=== PATIENT | female | born 1995 | race African-American/Black ===

== ENCOUNTER 2017-08-04 22:53 | Emergency (ER) | payer OTHER ==
[2017-08-04 22:57] VITALS: BP 130/80; BMI 24.9
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
[2017-08-05] MEDS ORDERED: KETOROLAC TROMETHAMINE 30 MG/1 ML VIAL IM ONE (01:28)
[2017-08-05] MEDS ORDERED: KETOROLAC TROMETHAMINE 30 MG/1 ML VIAL ONE (01:32)
[2017-08-05 03:18] VITALS: PULSE 80; TEMP 98.2
== END 2017-08-05 03:18 | disposition home or self-care (01) ==
LOC: JER 22:53
PROC: 3E0233Z Introduction of Anti-inflammatory into Muscle, Percutaneous Approach (ICD-10-PCS; principal; 2017-08-04)
DX: M54.5 Low back pain (principal); G89.29 Other chronic pain; V89.2XXS Person injured in unspecified motor-vehicle accident, traffic, sequela
CPT/HCPCS: 84703; 99281-25

== ENCOUNTER 2017-09-28 22:44 | Emergency (ER) | payer OTHER ==
[2017-09-28 23:03] VITALS: BP 128/64; PULSE 78; TEMP 98.9; BMI 27.1
[2017-09-28] MEDS ORDERED: KETOROLAC TROMETHAMINE 60 MG/2 ML VIAL IM ONE (23:25)
[2017-09-28] MEDS ORDERED: KETOROLAC TROMETHAMINE 30 MG/1 ML VIAL ONE (23:31)
[2017-09-28 23:42] LABS: URINE APPEARANCE SLCLOUDY; URINE BILIRUBIN NEGATIVE (<2.0 mg/dL); URINE COLOR YELLOW; URINE GLUCOSE (UA) NEGATIVE (NEGATIVE); URINE KETONE NEGATIVE (NEGATIVE); URINE LEUK ESTERASE TRACE (NEGATIVE); URINE NITRITE NEGATIVE (NEGATIVE); URINE PROTEIN NEGATIVE (NEGATIVE); URINE UROBILINOGEN NEGATIVE mg/dL (0.2-1.0)
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
[2017-09-28 23:57] LABS: EPI CELLS FEW /HPF (FEW); URINE MUCUS RARE
== END 2017-09-29 00:03 | disposition home or self-care (01) ==
LOC: JER 22:44
PROC: 3E0233Z Introduction of Anti-inflammatory into Muscle, Percutaneous Approach (ICD-10-PCS; principal; 2017-09-28)
DX: M54.5 Low back pain (principal); M62.830 Muscle spasm of back; G89.29 Other chronic pain
CPT/HCPCS: 81003; 81015; 84703; 99281-25

== ENCOUNTER 2017-12-19 22:20 | Emergency (ER) | payer OTHER ==
[2017-12-19 22:26] VITALS: BP 119/77; PULSE 82; TEMP 97.7; BMI 25.6
--- NOTE | 2017-12-20 00:13 | PDOC ---
History of Present Illness - General History Source: Patient Exam Limitations: No Limitations - History of Present Illness Initial Comments: 12/20/17 00:23 The patient is a 22 year old female, with a significant past medical history of asthma, who presents to the emergency department with diffuse back pain and increased sensitivity to her back for about 9 months which has increased over the past few weeks. She states she had an MRI of her cervical, thoracic, and lumbar spine which was normal. She reports she has gone to physical therapy, chiropractors, taken Tylenol, Motrin and muscle relaxants with no relief of pain. She states she can not elevate her arms above shoulder level secondary to pain. She states she can not lift her legs or stand/sit for long periods of time secondary to intense pain. She states even the lightest touch exacerbates her pain. She also reports that lying down exacerbated her back pain and makes her SOB. 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 She reports occasional radiation of pain down her upper and lower extremities. She states she is becoming depressed about her pain and inability to work. She states this pain is also interfering with her relationship with her boyfriend because touching her back hurts. The patient denies chest pain, headache and dizziness. The patient denies fever , chills, nausea, vomit, diarrhea and constipation. The patient denies dysuria, frequency, urgency and hematuria. Surgical Hx: ablation for endometriosis. PCP - Dr. Braulio Tomlinson <Jenny Wellington - Last Filed: 12/20/17 00:23> <Fela Gagnon - Last Filed: 12/20/17 00:27> - General Chief Complaint: Back Pain Stated Complaint: BACK PAIN Time Seen by Provider: 12/19/17 23:58 Past History <Jenny Wellington - Last Filed: 12/20/17 00:23> - Past Medical History Asthma: Yes COPD: No - Immunization History Immunization Up to Date: Yes - Suicide/Smoking/Psychosocial Hx Smoking Status: No Smoking History: Never smoked Have you smoked in the past 12 months: No Number of Cigarettes Smoked Daily: 0 Information on smoking cessation initiated: No Hx Alcohol Use: No Drug/Substance Use Hx: Yes Substance Use Type: Marijuana <Fela Gagnon - Last Filed: 12/20/17 00:27> - Past Medical History Allergies/Adverse Reactions: Allergies Allergy/AdvReac Type Severity Reaction Status Date / Time azithromycin [From Zithromax] Allergy Unknown Verified 12/19/17 22:26 Home Medications: Ambulatory Orders Diclofenac Sodium 50 mg PO BID #20 tablet. 09/28/17 Review of Systems - Review of Systems Able to Perform ROS?: Yes Comments:: 12/20/17 00:23 CONSTITUTIONAL: Absent: fever, chills, diaphoresis, generalized weakness, malaise, loss of appetite HEENT: Absent: rhinorrhea, nasal congestion, throat pain, throat swelling, difficulty swallowing, mouth swelling, ear pain, eye pain, visual Changes CARDIOVASCULAR: Absent: chest pain, syncope, palpitations, irregular heart rate, lightheadedness , peripheral edema RESPIRATORY: Absent: cough, shortness of breath, dyspnea with exertion, orthopnea, wheezing, stridor, hemoptysis GASTROINTESTINAL: Absent: abdominal pain, abdominal distension, nausea, vomiting, diarrhea, constipation, melena, hematochezia GENITOURINARY: Absent: dysuria, frequency, urgency, hesitancy, hematuria, flank pain, genital pain MUSCULOSKELETAL: (+) diffuse Myalgias in back Absent: arthralgia, joint swelling SKIN: Absent: rash, itching, pallor HEMATOLOGIC/IMMUNOLOGIC: Absent: easy bleeding, easy bruising, lymphadenopathy, frequent infections ENDOCRINE: Absent: unexplained weight gain, unexplained weight loss, heat intolerance, cold intolerance NEUROLOGIC: Absent: headache, focal weakness or paresthesias, dizziness, unsteady gait, seizure, mental status changes, bladder or bowel incontinence PSYCHIATRIC: Absent: anxiety, depression, suicidal or homicidal ideation, hallucinations. <Jenny Wellington - Last Filed: 12/20/17 00:23> *Physical Exam - Vital Signs Last Vital Signs Temp Pulse Resp BP Pulse Ox 97.7 F 82 17 119/77 100 12/19/17 22:23 12/19/17 22:23 12/19/17 22:23 12/19/17 22:23 12/19/17 22:23 - Physical Exam Comments: 12/20/17 00:24 GENERAL: Well developed, well nourished. Awake and alert. No acute distress. HEENT: Normocephalic, atraumatic. PERRLA, EOMI. No conjunctival pallor. Sclera are non- icteric. Moist mucous membranes. Oropharynx is clear. NECK: Supple. Full ROM. No JVD. Carotid pulses 2+ and symmetric, without bruits. No thyromegaly. No lymphadenopathy. CARDIOVASCULAR: Regular rate and rhythm. No murmurs, rubs, or gallops. Distal pulses are 2+ and symmetric. PULMONARY: No evidence of respiratory distress. Lungs clear to auscultation bilaterally. No wheezing, rales or rhonchi. ABDOMINAL: Soft. Non-tender. Non-distended. No rebound or guarding. No organomegaly. Normoactive bowel sounds. MUSCULOSKELETAL (+) Diffuse tactile pain on palpation from cervical spine to lumbar spine. Decreased ROM of hip and shoulder joints secondary to pain. No bony deformities. EXTREMITIES: No cyanosis. No clubbing. No edema. No calf tenderness. SKIN: Warm and dry. Normal capillary refill. No rashes. No jaundice. NEUROLOGICAL: Alert, awake, appropriate. Cranial nerves 2-12 intact. Normoreflexic in the upper and lower extremities. Normal speech. Toes are down-going bilaterally. Gait is normal without ataxia. PSYCHIATRIC: Cooperative. Good eye contact. Appropriate mood and affect. <Jenny Wellington - Last Filed: 12/20/17 00:23> - Vital Signs Last Vital Signs Temp Pulse Resp BP Pulse Ox 97.7 F 82 17 119/77 100 12/19/17 22:23 12/19/17 22:23 12/19/17 22:23 12/19/17 22:23 12/19/17 22:23 <Fela Gagnon - Last Filed: 12/20/17 00:27> *DC/Admit/Observation/Transfer - Attestations Scribe Attestion: 12/20/17 00:24 Documentation prepared by Jenny Wellington, acting as chief medical technologist for Fela Gagnon MD <Jenny Wellington - Last Filed: 12/20/17 00:23> <Fela Gagnon - Last Filed: 12/20/17 00:27> Diagnosis at time of Disposition: Pain in the muscles, Generalized body aches Chronic back pain Qualifiers: Back pain location: back pain in unspecified location Back pain laterality: bilateral Qualified Code(s): M54.9 - Dorsalgia, unspecified - Discharge Dispostion Disposition: HOME Condition at time of disposition: Stable - Referrals Referrals: Braulio Tomlinson MD [Primary Care Provider] - Jayson Mensah MD [Staff Physician] - - Patient Instructions Printed Discharge Instructions: DI for Chronic Pain -- Adult, DI for Musculoskeletal Pain Additional Instructions: please follow up with the neurologist for your diffuse muscle pain - Post Discharge Activity
== END 2017-12-20 01:01 | disposition home or self-care (01) ==
LOC: JER 22:20
DX: M54.9 Dorsalgia, unspecified (principal); M79.10 Myalgia, unspecified site; R52 Pain, unspecified; J45.909 Unspecified asthma, uncomplicated
CPT/HCPCS: 99281-25

== ENCOUNTER 2018-08-18 05:59 | Emergency (ER) | payer SELFPAY, OTHER | END 2018-08-18 10:15 | disposition home or self-care (01) | LOC: JER 05:59 ==

== ENCOUNTER 2018-08-23 15:25 | Emergency (ER) | payer SELFPAY | END 2018-08-23 18:00 | disposition home or self-care (01) | LOC: JER 15:25 ==